=== PATIENT | female | born 1935 | race Caucasian/White ===

== ENCOUNTER → 2016-12-07 | Outpatient (CLI) | payer OTHER ==
--- NOTE | 2016-12-07 10:44 | DI ---
XR SHOULDER MIN 2VW,12/07/2016 10:02 AM: Clinical History: Humeral head fracture. Previous Exam: November 19, 2016 Findings: 2 views of the right shoulder are obtained, and demonstrate a stable fracture through the right proxi mal humerus. There is mild comminution and there is some increasing new bone formation. Impression: Interval healing of a comminuted right proximal humeral fracture.
--- NOTE | 2016-12-07 10:48 | DI ---
XR FOREARM 2VW,12/07/2016 10:02 AM: Clinical History: Right forearm pain. Previous Exam: November 08, 2016 Findings: AP and lateral views of the right elbow are obtained, and demonstrate degenerative changes of the elb ow. Overlying soft tissues are unremarkable. Impression: Degenerative changes of the right elbow otherwise unremarkable.
== END ==
LOC: ORTHO 10:39
PROVIDERS: ATTEND Orthopaedic Surgery
DX: S42.291D Other displaced fracture of upper end of right humerus, subsequent encounter for fracture with routine healing (principal); M79.631 Pain in right forearm; M19.021 Primary osteoarthritis, right elbow
CPT/HCPCS: 73030; 73090

== ENCOUNTER → 2017-01-07 | Outpatient (CLI) | payer OTHER ==
--- NOTE | 2017-01-07 15:23 | DI ---
XR SHOULDER MIN 2VW,01/07/2017 1:06 PM: Clinical History: Right proximal humeral fracture. Previous Exam: December 07, 2016 Findings: 3 views of the right shoulder are obtained, and demonstrate a displaced fracture through the surgical neck of the right proximal humerus. There is some comminution. There is diffuse osteopenia. The alicia ral head lies slightly inferior to the glenoid. The acromioclavicular joint is unremarkable. The right chest wall and lung are unremarkable. Impression: Slightly displaced fracture of the right proximal humerus. Stable inferior displacement of the humerus on the glenoid.
== END ==
LOC: ORTHO 13:15
PROVIDERS: ATTEND Orthopaedic Surgery
DX: S42.291D Other displaced fracture of upper end of right humerus, subsequent encounter for fracture with routine healing (principal)
CPT/HCPCS: 73030; 99213

== ENCOUNTER 2018-05-15 11:22 | Inpatient (IN) ==
[2018-05-15] MEDS ORDERED: Sodium Chloride 0.9% 1,000 ML PRIMARY IV ONE (11:28)
--- NOTE | 2018-05-15 11:40 | EKG ---
[address] [address] Measurements Intervals [place] Rate: 67 P: 72 MN: 213 QRS: 51 QRSD: 78 T: 29 QT: 413 QTc: 428 Interpretive Statements SINUS RHYTHM WITH FIRST DEGREE AV BLOCK No previous ECG available for comparison Electronically Signed On 05-19-18 09:43:46 MDT by Bart Nava MD [email or web address]
[2018-05-15 11:46] LABS: BASOPHILS # (AUTO) 0.01 10*3/UL; BASOPHILS % (AUTO) 0.2 % (0-1); EOSINOPHILS # (AUTO) 0.09 10*3/UL; EOSINOPHILS % (AUTO) 1.8 % (0-8); Hemoglobin [HGB] 13.6 g/dL (12.0-16.0); LYMPHOCYTES # (AUTO) 1.51 10*3/uL; MEAN CORPUSCULAR HEMOGLOBIN 32.2 PG (27-31); MEAN CORPUSCULAR HGB CONC 33.2 g/dL (33-37); MEAN CORPUSCULAR VOLUME 97.2 FL (81-99); MEAN PLATELET VOLUME 8.9 FL (7.4-12.2); MONOCYTES # (AUTO) 0.38 10*3/UL (0.3-0.8); MONOCYTES % (AUTO) 7.7 % (5-15); NEUTROPHILS # (AUTO) 2.92 10*3/UL; NEUTROPHILS % (AUTO) 59.5 % (50-80); RED BLOOD COUNT 4.22 10^6/uL (4.20-5.40)
[2018-05-15 11:49] LABS: PLATELET MORPHOLOGY COMMENT NORMAL MORPHOLOGY (NORM); RBC MORPHOLOGY COMMENT NORMAL MORPHOLOGY (NORM); WBC MORPHOLOGY COMMENT NORMAL MORPHOLOGY (NORM)
[2018-05-15 11:56] LABS: BLOOD UREA NITROGEN 14 mg/dL (7-22); BUN/CREATININE RATIO 23.33 (6-20); SERUM ALBUMIN 4.2 g/dL (3.5-4.8)
--- NOTE | 2018-05-15 12:01 | DI ---
CT Head WO Contrast,05/15/2018 11:29 AM: Clinical History: Right sided weakness Previous Exam: None at this facility. Findings: Multiple helically acquired CT images are obtained through the brain without contrast, and demonstrat e mild diffuse age-related volume loss. There is no mass, hemorrhage or midline shift. The surroundin g soft tissue and osseous structures are unremarkable. Impression: Diffuse age-related volume loss otherwise unremarkable.
--- NOTE | 2018-05-15 14:05 | DI ---
MRI MRA Neck WO Contrast,05/15/2018 12:03 PM: Clinical History: Sided weakness Previous Exam: None at this facility. Findings: Multiplanar MR images are obtained through the neck following a 2-D tivf-ui-ejfrsk protocol, and demo nstrate some irregularity of the internal carotid arteries at the base of the skull. The carotid bulb s demonstrate some very mild, and significant narrowing. Visualized portions of the vertebral arteries are grossly normal, but these are not well evaluated on this exam due in part to tortuosity. Visualized portions of the aorta are unremarkable. Impression: 1. Irregular thinning of the internal carotid arteries near the proximal intracranial portions is mos t consistent with artifact due to the adjacent bony structures and the tortuosity at this level causi ng artifact on the 2-D [id number]-[id number] images. These portions will be better evaluated on the 3-D time -of-flight images through the cranium.
--- NOTE | 2018-05-15 14:07 | DI ---
MRI Brain WO Contrast,05/15/2018 12:03 PM: Clinical History: Right sided weakness. Previous Exam: None at this facility. Findings: Multiplanar MR images are obtained through the brain without contrast, and demonstrate multiple scatt ered areas of increased FLAIR and T2 signal predominantly within the periventricular and subcortical white matter. There is no abnormally restricted diffusion. The posterior fossa is unremarkable. Visualized portions of the cervical spinal cord are normal. Sign al within the clivus is normal. The midline structures are unremarkable. The major vascular flow void s are within normal limits. Paraspinal musculature is unremarkable. Paranasal sinuses and intraorbital structures are unremarkabl e. Impression: Diffuse age-related volume loss and scattered areas of increased FLAIR and T2 signal most consistent with small vessel ischemic changes.
--- NOTE | 2018-05-15 14:23 | DI ---
MRI MRA Head WO Contrast,05/15/2018 12:03 PM: Clinical History: Right sided weakness Previous Exam: None at this facility. Findings: 3-D ispu-ii-qznjpw images are obtained through the brain, and demonstrate a normal-appearing [place]. The proximal internal carotid arteries are within normal limits. The basilar artery and vertebral art eries appear normal. The posterior communicating arteries are diminutive bilaterally. The middle and anterior cerebral arteries are normal. The anterior communicating artery is not well evaluated, but is grossly normal. There is a small area of restricted diffusion within the left cerebral apex medially adjacent to the interhemispheric fissure. There is no associated increased FLAIR T2 signal within this area although there is some general increased FLAIR signal. This is intermediate signal on ADC mapping. Impression: Small poorly defined area of abnormally restricted diffusion involving the medial left superior jerod x adjacent to the interhemispheric fissure in the parietal occipital region. There is no definite inc reased FLAIR and T2 signal in this area at this time. This most likely represents an acute event (les s than 12 hours). This is in the region of the motor cortex.
--- NOTE | 2018-05-15 15:44 | PDOC ---
HPI - History of Present Illness Date of Service: 05/15/18 Time of Service: 16:00 Chief Complaint: Dizziness with a right sided weakness History of Present Illness: This is an 83 years old female with medical history significant for history of seizure disorder on medication, hyperlipidemia who was sent to the emergency department from [place] because of right-sided weakness and heaviness. She did also complain from dizziness. She said that she was outside and then she started to feel dizzy went back inside the house she noticed that the right side is weak and times she had tendency to fall and the daughter took her to the [facility] the weakness somewhat improved and from there she was sent to the ER here. When she came in to the ER she had trouble getting out of the car and needed a wheelchair. In the ER she had CT and an MRI the MRI showed the small cortical stroke. The case was discussed with Dr. Johnston the neurologist at [facility]. Patient was about 4 hours after the onset of her symptoms. Because of that they did not think that she is a candidate for thrombolytic agent. After the MRI recommendation was admission and starting her on aspirin and Plavix. The Plavix is to continue for 1 month. After that patient was admitted to the hospital. Currently she feels better, she's not dizzy still have somewhat some heaviness she said in the right leg but is not as bad as it was. No headaches, she has a history of double vision which is an old thing since her cataract surgery. Nothing new. She denied chest pain, shortness of breath and palpitation. Past Medical History Medical History: 1. History of seizures diagnosed 6 years ago last time she had a seizure was more than 4 years ago. 2. Hyperlipidemia Surgical History: 1. History of for cataract surgery. 2. History of right humeral fracture treated conservatively. 3. History of cholecystectomy. 4. History of hysterectomy Family History: Reviewed an Not Pertinent Past Social History: Does not smoke, does not drink no drugs. Lives in [place] by herself. She is independent she still drives. Tobacco Use: Never Smoker In the Past 12 Months, Have Used or Abuse Any of the Following Substance: None Medication / Allergies Home Medications: Home Medications 3 Medication Instructions Recorded Confirmed Type Atorvastatin Calcium [Lipitor] 1 tab PO QD 08/19/12 05/15/18 History Oxcarbazepine 1 tab PO BID tab 08/19/12 05/15/18 History Aspirin 81 mg PO DAILY 10/30/16 05/15/18 History Allergies/Adverse Reactions: Allergies 3 Allergy/AdvReac Type Severity Reaction Status Date / Time hydrocodone AdvReac Intermediate VOMITING Verified 05/15/18 16:02 Review of Systems - Review of Systems All Systems: Reviewed & No Additional Complaints Except as Stated Exam - Vitals Vital Signs: Vital Signs Temperature 97.4 F Temperature Source Temporal Artery Scan Pulse Rate [Pulse Oximeter 74 Right] Pulse Rate 75 Respiratory Rate 16 Blood Pressure [Left Arm] 151/93 Pulse Ox 94 Oxygen Delivery Method Room Air Height 5 ft 2 in Weight 118 lb - General General Appearance: No Acute Distress, Cooperative - Head Head Exam: Normal Inspection - Eye Eye Exam: POSITIVE: Normal Appearance - ENT ENT Exam: POSITIVE: Normal Exam - Neck Neck Exam: Normal Inspection - Respiratory Respiratory Exam: POSITIVE: Clear to Auscultation - Bilaterally - Cardiovascular Cardiovascular Exam: POSITIVE: RRR - GI/Abdominal GI/Abdominal Exam: POSITIVE: Normal Bowel Sounds, Non Tender, Non Distended, Soft, No Organomegaly - Rectal Rectal Exam: POSITIVE: Deferred - External Exam: POSITIVE: Deferred Exam: POSITIVE: Deferred - Extremities Extremities Exam: POSITIVE: Normal Inspection - Back Back Exam: POSITIVE: Normal Inspection - Neurological Neurological Exam: POSITIVE: Alert, Oriented x 3, CN II-XII Intact, No Facial Droop, Speech Intact / Clear Additional Neurological Exam Details: There is limited abduction on the right arm but this is old. There is very subtle weakness I would say in the right lower leg compared to the left. Reflexes are symmetrical and hypoactive. Babinski is negative. Cranial nerves are intact. Sensation seems to be intact. Coordination is normal. Results - Labs CBC and BMP: 05/15/18 11:35 05/15/18 11:35 - EKG Data -: EKG Interpreted by Me - EKG Data When Compared to Previous EKG(s) There Are: Other (EKG shows sinus rhythm with first-degree AV block) EKG Interpretation: Normal EKG - Imaging Status: Report Reviewed by Me (MRI showed Small poorly defined area of abnormally restricted diffusion involving the medial left superior cortex adjacent to the interhemispheric fissure in the parietal occipital region. There is no definite increased FLAIR and T2 signal in this area at this time. This most likely represents an acute event (less than 12 hours). This is in the region of the motor cortex.) Assessment and Plan - Patient Problems (1) Cerebrovascular accident Current Visit: Yes Status: Acute Comment: Will put her on aspirin and Plavix as recommended by the neurologist. Will continue her Lipitor. Watch her blood pressure. Will put her on cardiac cath technologist to look for any arrhythmias. We'll ask PT and OT to work with her. Did order the echo for tomorrow. Code(s): I63.9 - Cerebral infarction, unspecified (2) Seizure disorder Current Visit: No Status: Chronic Comment: Continue previous medications.
--- NOTE | 2018-05-15 16:17 | PDOC ---
General Adult HPI - General Chief Complaint: Neurological Complaints Stated Complaint: stroke symptoms/rt side weakness Date Seen by Provider: 05/15/18 Time Seen by Provider: 11:22 Source: POSITIVE: Patient, Other (Daughter) Exam Limitations: POSITIVE: No limitations Nurse's Notes Reviewed & Considered: Yes - History of Present Illness Initial Comment: The patient is an 83-year-old female who presents to the emergency department with complaints of right sided weakness and heaviness. Of dizziness. At that time she also felt like her right side was weak and heavy. She had a very difficult time getting back to the house. Her daughter subsequently took her to the clinic and [place] close to where she lives. At that time the weakness was slightly improved however they recommended that she come here to the emergency department for evaluation. Her daughter subsequently drove her here to the emergency department. On arrival here she states that her right arm and right leg still feel heavy. She did have a difficult time getting out of the car here. She denies any associated headache, change in vision, speech difficulty, confusion or any other associated symptoms. She does not currently take any blood thinner medications. She is not a diabetic. She does take medications for seizures as well as for high cholesterol. She has not had any recent seizure that she is aware of. Her current symptoms are not similar to seizures that she has had previously. She does see Dr. Ramirez in [place] for her seizures. Have you received a tetanus shot in the past 10 years?: No - Patient Home Medications Home Medications: Home Medications Atorvastatin Calcium [Lipitor] 1 tab PO QD 08/19/12 Oxcarbazepine 1 tab PO BID tab 08/19/12 Aspirin 81 mg PO DAILY 10/30/16 - Patient Allergies Allergies/Adverse Reactions: Allergies 3 Allergy/AdvReac Type Severity Reaction Status Date / Time hydrocodone AdvReac Intermediate VOMITING Verified 05/15/18 16:02 Past Medical History - heen HEENT History: Denies History Cardiovascular History: Hyperlipidemia Respiratory History: Denies History Gastrointestinal History: Other (please comment) Additional Gastrointestinal History: sedrick Genitourinary History: Denies History Endocrine History: Denies History Musculoskeletal History: Denies History Prosthesis or Implant: No Neurological History: Seizures Blood Disorders: Denies History Psychiatric History: Denies History Female Reproductive History: Denies History Obstetrical History: Denies History Cancer History: Denies History In Past Year Been Physically Harmed or Verbally Threatened: No History of MDRO: No Tobacco Use: Never Smoker Alcohol Use: None In the Past 12 Months, Have Used or Abuse Any Substance: None Previous Surgical History: Yes Type / Date of Surgery: hyster. sedrick. CYST FROM RT BREAST Significant Family History: No pertinent family hx Past Medical History Reviewed: Reviewed - No Changes ROS - Limitations ROS Limitations: No Limitations Constitution: DENIES: Chills, Fever Cardiovascular: DENIES: Chest Pain, Heart Palpitations Respiratory: DENIES: Shortness Of Breath Neurological: REPORTS: Dizziness, Weakness (Right arm and leg feel heavy). DENIES: Confusion, Headache, Numbness Gastrointestinal: REPORTS: Denies GI Symptoms Musculoskeletal: DENIES: Lower Extremity Swelling Eyes: REPORTS: Denies Symptoms. DENIES: Vision Changes ENT: REPORTS: Denies Symptoms Skin: DENIES: Rash General Adult Exam - General Appearance General Appearance: POSITIVE: Alert, Cooperative, No Acute Distress - HEENT HEENT: POSITIVE: Head Inspection Nml, Eyes Inspection Nml, Ears Inspection Nml, Nose Inspection Nml, Pharynx Inspect. Nml, PERRL, EOMI - Neck Neck: POSITIVE: Normal Inspection. NEGATIVE: Lymphadenopathy - Respiratory Respiratory: POSITIVE: No Respiratory Distress, Breath Sounds Normal - Cardiovascular Cardiovascular: POSITIVE: Regular Rate & Rhythm, No Murmur Peripheral Pulses: Radial (R): 2+, Radial (L): 2+, Dorsalis-pedis (R): 2+, Dorsalis-pedis (L): 2+ - Abdomen Abdomen: Soft: (All Quadrants), Denies Tenderness: (All Quadrants), No Distention: (All Quadrants) - Back Back: POSITIVE: Normal Inspection - Skin Skin: POSITIVE: Normal Color, No Rash - Extremities Extremity: Normal ROM: (All Extremities), Normal Inspection: (All Extremities) - Neurological / Psychological Neurological: POSITIVE: Oriented X3, production tech Normal As Tested, Motor Normal ( Despite complaints of right sided arm and leg heaviness she does not have any detectable motor deficits), Sensation Normal General Adult Progress - Results Reviewed by me Xrays/CTs/US Reviewed by me: Yes Discussed with Radiologist: Yes Radiology Findings: Initial noncontrast CT scan of the head shows no evidence of intracranial hemorrhage or any other acute abnormality per radiologist. MRI of the brain reveals a small area of acute ischemia to the left motor cortex, MRA reveals no obvious significant stenosis per radiologist. Lab Results Reviewed by Me: Yes CBC and BMP: 05/15/18 11:35 05/15/18 11:35 EKG Interpreted/Reviewed By Me:: Yes EKG Interpretation:: POSITIVE: Normal Sinus Rhythm, Normal Rate, Normal QRS, Normal ST/T - Patient's Progress MDM / ED Course: Shortly after arrival I did discuss the patient with Dr. S[place] who [place] [facility] presented here to our emergency department approximately 4 hours after onset of symptoms this morning. Given her current clinical examination and timing of presentation Dr. Saha did not think that the patient would be a candidate for thrombolytic therapy. He recommended the initial noncontrast CT scan of the head which had been ordered and was subsequently negative for hemorrhage. He then recommended further evaluation with MRI and MRA. EKG was also performed and showed a normal sinus rhythm with no acute changes. Her lab work including blood sugar were unremarkable. Subsequent MRI of the brain does reveal a small acute infarct in the motor cortex with no obvious stenosis in the blood vessels. I did discuss the patient again with Dr. Saha after the MRI was available. He recommended aspirin in combination with Plavix for one month. He also recommended checking echocardiogram and fasting lipid panel with treatment of LDL greater than 70. These findings and recommendation were discussed with the patient and her daughter. Recommendation was for admission to the hospital for further cardiac monitoring, physical therapy consultation and testing/treatment as recommended per Dr. Saha. Dr. Linares has agreed to admit the patient and the patient is in agreement with this plan. - Consult Counseled: POSITIVE: Patient, Family, RE: Lab Results, RE: Radiology Results, RE : DX Patient Care Time - Estimated PCT Patient Care Time (In Minutes): 60 Vital Signs - Recent Vital Signs Vital Signs: Vital Signs (Last 8 hours) Temp Pulse Pulse Resp BP Pulse Ox 05/15/18 13:44 97.4 F 74 16 151/93 94 05/15/18 11:28 75 05/15/18 11:22 97.4 F 77 18 155/109 94 - VS Reviewed Vital Signs Reviewed: Yes Discharge Clinical Impression: Cerebrovascular accident Discharge Disposition: Admit to Inpatient Condition: Fair Date Decision to Admit to Inpatient: 05/15/18 Time Decision to Admit to Inpatient: 15:00
[2018-05-15] MEDS ORDERED: CLOPIDOGREL 75 MG TABLET PO ONE (16:23)
[2018-05-15] MEDS ORDERED: LIDOCAINE W/ SODIUM BICARB 0.5 ML SYR SUBD PRN (16:24)
[2018-05-15] MEDS ORDERED: ASPIRIN EC 81 MG TABLET PO ONE (16:30)
[2018-05-15] MEDS ORDERED: ATORVASTATIN 40 MG TABLET PO SCH (21:00)
[2018-05-15] MEDS: OXCARBAZEPINE 300 MG PO SCH (21:05)
[2018-05-16 05:26] LABS: CHOL/HDL RATIO 1.97 RATIO (0-4.0)
[2018-05-16 07:08] VITALS: BP 124/77; RESP 18; TEMP 97.5; O2SAT 94
[2018-05-16] MEDS: OXCARBAZEPINE 300 MG PO SCH (08:39)
[2018-05-16] MEDS ORDERED: CLOPIDOGREL 75 MG TABLET PO SCH (09:00)
[2018-05-16] MEDS ORDERED: ASPIRIN 325 MG EC TABLET PO SCH (09:00)
--- NOTE | 2018-05-16 12:18 | DCSUMMARY ---
Hospitalization Summary Admit Date: 05/15/2018 Discharge Date: 05/16/18 Primary Diagnosis:: left-sided stroke, motor cortex Hospital Course: This very pleasant 83-year-old female who presented with a left-sided stroke, with right-sided weakness. It was acute in onset, and probably was less than 12 hours old based on imaging initially. My partner, Dr. Linares, spoke with the neurologist, and it was suggested that the patient should be on dual antiplatelet therapy for the next 30 days, and I will go ahead and increased cholesterol medication to a maximum dose. LDLs were well controlled, but I think maximum dose makes sense given the acute event. There was no room to add blood pressure medication with systolics in the 120s. The patient has not been hypertensive at all. I've advised her to watch her blood pressures every day and if they are above 140, to start a pressure medication. The patient has no obvious deficits on muscle strength testing here today. She is able to ambulate without assistance. There is no facial droop. Speech is intact and clear. The patient would like to go home. Echocardiogram results are pending at the time of discharge, but there was no noticed arrhythmia problems with heart monitoring. No evidence of atrial fibrillation. Overall the stroke is presumed related to cerebrovascular disease and maybe an in situ event. No completes of chest pain, shortness breath, nausea or vomiting today. Patient wants to go home. Her family is at bedside and agrees with that plan. Assessment and Plan: 1. As per discharge assessments noted 2. Disposition: Patient is discharged home 3. Condition on discharge, stable and improved. 4. Diet: regular diet 5. Activities: resume normal activities 6. Follow-Up: 1. See Marielle Gutiérrez in [place] in one week 2. 7. Medications at the Time of Discharge: Home Medications 3 Medication Instructions Recorded Confirmed Type Atorvastatin Calcium [Lipitor] 1 tab PO QD 08/19/12 05/15/18 History Oxcarbazepine 1 tab PO BID tab 08/19/12 05/15/18 History Aspirin EC 325 mg PO DAILY #120 tab 05/16/18 Rx Clopidogrel [Plavix] 75 mg PO DAILY #30 tab 05/16/18 Rx The atorvastatin will be 2 tablets daily until completed. Then the dose was changed to 80 mg by mouth daily at bedtime Exam - Vitals Vital Signs: Vital Signs Temperature 97.5 F Temperature Source Temporal Artery Scan Pulse Rate [Pulse Oximeter 72 Right] Pulse Rate 77 Respiratory Rate 18 Blood Pressure [Left Arm] 124/77 Pulse Ox 94 Oxygen Delivery Method Room Air Height 5 ft 2 in Weight 121 lb - General General Appearance: No Acute Distress, Cooperative - Eye Eye Exam: POSITIVE: No Scleral Icterus - ENT ENT Exam: POSITIVE: Mucous Membranes Moist - Respiratory Respiratory Exam: POSITIVE: Clear to Auscultation - Bilaterally, Breathing Non Labored - Cardiovascular Cardiovascular Exam: POSITIVE: RRR, No Murmur, No Clicks, No Gallops, No Rubs, No JVD - Extremities Extremities Exam: POSITIVE: No Clubbing Present, No Edema Present, No Cyanosis Present - Neurological Neurological Exam: POSITIVE: Alert, Oriented x 3, No Facial Droop, Speech Intact / Clear, Moves All Extremities Equally Data Peritnent Studies: Laboratory Results 05/15/18 05/16/18 Range/Units 11:35 04:51 Triglycerides 73 (44-200) mg/dL Cholesterol 140 (120-200) mg/dL LDL Cholesterol, Calc 54.400 mg/dL VLDL Cholesterol 14 (0-40) mg/dL HDL Cholesterol 71 (40-150) mg/dL Cholesterol/HDL Ratio 1.97 (0-4.0) RATIO TSH 2.90 (0.2700-4.2000) uIU/mL 05/15/18 05/15/18 05/15/18 11:35 11:35 11:35 WBC 4.91 Hgb 13.6 Hct 41.0 Plt Count 216 PT 10.4 INR 0.98 D-Dimer 0.59 Sodium 140 Potassium 4.2 Chloride 105 Carbon Dioxide 27 Anion Gap 8 BUN 14 Creatinine 0.6 Glucose 78 Calcium 8.6 L Magnesium 2.0 Total Bilirubin 0.5 AST 27 ALT 27 Alkaline Phosphatase 72 Troponin I Total Protein 7.1 Albumin 4.2 Globulin 2.9 05/15/18 11:35 WBC Hgb Hct Plt Count PT INR D-Dimer Sodium Potassium Chloride Carbon Dioxide Anion Gap BUN Creatinine Glucose Calcium Magnesium Total Bilirubin AST ALT Alkaline Phosphatase Troponin I < 0.012 Total Protein Albumin Globulin Patient Problems - Patient Problem List (1) Cerebrovascular accident Current Visit: Yes Status: Acute Code(s): I63.9 - Cerebral infarction, unspecified Category: Medical (2) Seizure disorder Current Visit: Yes Status: Chronic Category: Medical (3) Hyperlipidemia Current Visit: Yes Status: Chronic Category: Medical
--- NOTE | 2018-05-16 15:07 | PTI REPORT ---
Thank you for the referral of Lacie Carias. She was seen on 05/15/18 for an inpatient evaluation secondary to a possible CVA. SUBJECTIVE: The patient is an 83-year-old female who reports she was watering her lawn earlier today when she felt like she was going to fall. She reports her right leg felt like it was giving out and she felt very dizzy and lightheaded. The patient lives alone in [place]. Her daughter lives about a mile away and often visits. The patient has a few steps up to her porch with a railing on either side in front of her home; the patient does not report any other stairs in her home. Before today the patient was completely independent with all ADLs and did not use an assistive device. The patient does not report any dizziness or pain at this time and states she does not feel any change in sensation or strength. The patient reports she feels like she leans a little to the right and feels off balance. PAST MEDICAL HISTORY: Past medical history can be found in the patient's medical record. OBJECTIVE FINDINGS: General observations: The patient is alert and oriented. The patient tilts head to right in supine and sitting. Bed mobility: The patient is independent with bed mobility. Transfers: The patient is independent with sit to stand transfers. Balance: The patient demonstrates minimal sway in standing balance and requires contact guard assist x1. In a 360 degree turn, the patient is unable to turn to the right without stumbling. With a large perturbation, the patient lacks stepping strategy to recover balance. The patient scored 15/28 on the Tinetti test, which places her at a HIGH risk of falling. Ambulation: The patient requires contact guard assist x1 for ambulation. The patient lacks proper heel/toe gait pattern; however, she clears both feet during swing phase. The patient demonstrates deviation to the right with walking and is unable to maintain trunk in midline. The patient walked 150 feet during treatment. Strength: Manual muscle testing demonstrates strength of 5/5 for all lower extremities except for right hip flexion which is 4/5. ASSESSMENT: The patient presents with difficulty walking and transferring due to impaired balance and high risk of falling, limiting her ability to perform ADLs independently and safely within the community. Problem List: Difficulty walking without marked deviation Difficulty changing direction without risk of falling during ambulation Impaired reactive balance and difficulty recovering balance Short-Term Goals: To be met by discharge from inpatient: Patient will increase Tinetti score to 19 points. Patient will demonstrate independent and safe transfer from sit to stand. Patient will demonstrate independent and safe ambulation without assistance. Long-Term Goals: To be met following discharge from inpatient: Patient will be seen by outpatient physical therapy. TREATMENT PLAN: Patient will be seen B.I.D during the week and one time per day over the weekend as an inpatient for balance and gait training. INITIAL TREATMENT: Treatment today consisted of the initial evaluation followed by ambulation x150 feet. The patient then transferred back into bed. The patient was left supine in bed with call light within reach and bed alarm set. Dictated by: YESIKA Blanchard Supervised by: CHELSI Barth
--- NOTE | 2018-05-19 09:45 | PT AM DAY ---
Diagnosis : Possible CVA AM - Physical Therapy S: The patient participated with occupational therapy activities prior to physical therapy. She states that she is doing really well and anticipates being discharged this afternoon. O: Treatment today consisted of instruction in balance activities consisting of balance grid to move within the sagittal and frontal planes with hand hold assist x2. The patient then ambulated over hurtles and onto the AirX pad both forward and sideways with hand hold assist x1 as needed. The patient tolerated balance activities very well and demonstrated no loss of balance when performing balance activities. The patient was able to perform 10 sit to stand transfers from a standard chair and performed NuStep activity x10 minutes. The patient ambulated with contact guard assist x1 from therapy back up to her room at the end of session and was left with call light within reach and alarm set. A: The patient participated very well with higher level balance activities and demonstrated ability to work in man different planes of motion without loss of balance and demonstrated good safety awareness. The patient has met goals for therapy and we anticipate that she will be discharged this afternoon. P: Continue seeing patient BID during the week and one time per day over the weekend until discharge. MYRNA
--- NOTE | 2018-05-19 15:23 | OTI REPORT ---
Thank you for the referral of Lacie Carias. She was seen on 05/15/18 for an occupational therapy inpatient evaluation secondary to a possible CVA. SUBJECTIVE: The patient is an 83-year-old female. The patient reports she lives in [place], [place]. The patient's daughter was present for the occupational therapy evaluation. Prior to admission the patient was living independently at home and she was driving. She completed all iADLs and ADLs independently including yard work and taking care of her lawn. The patient reports that she was at home earlier today and she was moving her tractor sprinkler and when she stood up she was very dizzy. When she went into the house she had a hard time sitting upright and walking without falling to the right side. The patient then called her daughter and they went to the clinic in [place]. The patient was brought to [facility] and was admitted. The patient reports she has two steps to the entrance of her home on the porch with handrails. She has no steps within her home. Her bathroom set up includes a walk-in shower with a small lip to get in. She does have a shower chair; however, she does not use it. The patient has a standard toilet. The patient does not use any assistive devices at home. The patient denies headaches, dizziness, or shortness of breath. The patient reports she would like to go home as soon as possible. PAST MEDICAL HISTORY: Past medical history can be found in the patient's medical record. OBJECTIVE FINDINGS: Pain: The patient rates her pain currently as a 4/10 on the verbal analog scale (0=no pain, 10=worst pain) with the pain being in her neck. Range of motion: The patient demonstrated upper extremity range of motion on the right shoulder that was 75% of full. The patient had a fall years back and broke her shoulder. Elbow, hand, and wrist was within functional limits on the right. Left side is within normal limits for the shoulder, elbow, hand, and wrist. Strength: Upper extremity strength is 4/5 on the right for the shoulder, elbow, hand, and wrist. Upper extremity strength is 4+/5 on the left for the shoulder , elbow, hand, and wrist. Vision: The patient demonstrated the ability to track horizontally, vertically, and in circular motions without difficulty or eyes jumping; however, she was unable to converge eyes. The left eye did not converge or diverge. The right side did converge and diverge. Bed mobility: When sitting edge of bed, the patient leaned to the left and required verbal cues to self correct. The patient was able to complete bridges , sit to supine transfer, and supine to sit transfer independently. Ambulation: When walking through doorways, the patient hit the doorway on the right side and required mod assist to maintain balance when turning. Cognition: The patient was unable to repeat a sentence. The patient was oriented to person, place, date, and reason for hospitalization. Activities of daily living: The patient demonstrated the ability to doff his shirt sitting edge of bed independently; however, the patient struggled sitting upright on edge of bed. The patient demonstrated the ability to doff pants while sitting edge of bed. ASSESSMENT: Problem List: Decreased sitting balance Decreased dynamic standing balance Decreased static standing balance Decreased upper extremity strength Decreased ability to complete ADLs that require standing Short-Term Goals: To be met by discharge from inpatient: Patient will demonstrate 100% facial symmetry. Patient will increase bilateral upper extremity strength by one manual muscle grade. Patient will demonstrate the ability to complete all ADL tasks independently with zero losses of balance including showering, toileting, and dressing. Patient will complete grooming tasks standing at the sink x10 minutes with zero losses of balance. Patient will be able to perform dynamic and static sitting balance tasks with functional reaching in order to perform seated grooming tasks with no verbal cues to self correct errors. Patient will demonstrate the ability to complete putting away dishes with dynamic standing balance and functional reaching with zero losses of balance. Patient will demonstrate the ability to complete verbal articulation tasks with 90% accuracy without verbal cues. Long-Term Goals: To be met following discharge from inpatient: Patient will return home to prior level of function with adaptive equipment as needed. TREATMENT PLAN: Patient will be seen B.I.D during the week and one time per day over the weekend as an inpatient to address the above goals and objectives. INITIAL TREATMENT: Treatment today consisted of the initial evaluation followed by functional mobility tasks including bed mobility, upper and lower extremity dressing, and functional ambulation. MYRNA
== END 2018-05-16 12:30 | disposition home or self-care (01) | DRG 66 ==
LOC: ER 11:22 → MED/SURG 15:42
PROVIDERS: ADMIT Internal Medicine; ATTEND Internal Medicine